=== PATIENT | male | born 1990 | race Caucasian/White ===

== ENCOUNTER 2020-09-26 15:42 | Emergency (ER) | payer MEDICAID ==
[~2020-09-26] VITALS: Ht 175.3 cm; Wt 90.0 kg
[2020-09-26 18:07] LABS: BASOPHILS % (AUTO) 0.4 % (0.0-2.0); HEMOGLOBIN 14.3 g/dL (13.5-17.5); LYMPHOCYTES % (AUTO) 36.2 % (22.0-44.0); MEAN CORPUSCULAR HEMOGLOBIN 30.8 pg (26.0-34.0); MEAN CORPUSCULAR VOLUME 91 fL (80-100); MONOCYTES # (AUTO) 0.4 K/uL (0.1-1.0); MONOCYTES % (AUTO) 6.5 % (2.0-9.0); NEUTROPHILS # (AUTO) 3.1 K/uL (1.8-7.7); NEUTROPHILS % (AUTO) 55.9 % (40.0-70.0); PLATELET COUNT (AUTO) 159 K/uL (150-450); RED BLOOD CELL COUNT(AUTO) 4.63 MIL/uL (4.50-5.90); RED CELL DISTRIBUTION WIDTH 12.9 % (11.5-14.5)
[2020-09-26 18:29] LABS: AMPHET/METH SCREEN,URINE NEGATIVE (NEGATIVE); BARBITURATE SCREEN, URINE NEGATIVE (NEGATIVE); BENZODIAZEPINES SCREEN,URINE NEGATIVE (NEGATIVE); CANNABINOID SCREEN,URINE NEGATIVE (NEGATIVE); COCAINE SCREEN,URINE NEGATIVE (NEGATIVE); METHADONE SCREEN, URINE NEGATIVE (NEGATIVE); OPIATE SCREEN,URINE NEGATIVE (NEGATIVE)
[2020-09-26 18:33] LABS: PHENCYCLIDINE SCREEN,URINE NEGATIVE (NEGATIVE)
[2020-09-26 19:30] VITALS: BP 130/74
[2020-09-26 19:30] LABS: ANION GAP 9 mmol/L (8-16); CALCIUM, TOTAL 9.2 mg/dL (8.8-10.5); CARBON DIOXIDE 29 mmol/L (22-29); CHLORIDE 105 mmol/L (98-107); CREATININE 1.16 mg/dL (0.60-1.30); GLOMERULAR FILTR. RATE CALC > 60 mL/min (>60); GLUCOSE,RANDOM 97 mg/dL (70-110); POTASSIUM 4.4 mmol/L (3.5-5.1); SODIUM SERUM 143 mmol/L (136-145); UREA NITROGEN, BLOOD 16 mg/dL (7-18)
[2020-09-26 19:36] LABS: ALANINE AMINOTRANSFERASE 30 U/L (12-78); ALBUMIN 4.2 g/dL (3.4-5.0); ALKALINE PHOSPHATASE 61 U/L (46-116); ASPARTATE AMINOTRANSFERASE 19 U/L (15-37); BILIRUBIN,TOTAL 0.3 mg/dL (0.1-1.0); TOTAL PROTEIN, SERUM 7.3 g/dL (6.4-8.2)
[2020-09-26 20:19] LABS: COVID AG,FIA SOURCE NASOPHARYNGEAL
== END 2020-09-26 19:40 | disposition home or self-care (01) ==
LOC: EMS 15:44
DX: R45.851 Suicidal ideations (principal); Z20.822 Contact with and (suspected) exposure to COVID-19
CPT/HCPCS: 36415; 80053; 80307; 85025; 87426; 99285; C9803; G0480

== ENCOUNTER 2020-11-14 18:28 | Inpatient (IN) | payer MEDICAID ==
[~2020-11-14] VITALS: Ht 172.7 cm; Wt 80.7 kg
[2020-11-14] MEDS ORDERED: LURA40TA2 PO (19:04)
[2020-11-14] MEDS ORDERED: GuaiFENesin/D-METHORPHAN [SUGAR-FREE] 200-20MG/10 ML SYRUP UDCUP PO PRN (20:45)
[2020-11-14] MEDS ORDERED: LORazepam 2 MG TABLET PO PRN (20:45)
[2020-11-14] MEDS ORDERED: ACETAMINOPHEN 325 MG TABLET PO PRN (20:45)
[2020-11-14] MEDS ORDERED: TUBERCULIN, PURIFIED PROTEIN DERIVATIVE 5 TU/0.1 ML SYRINGE ID ONE (20:45)
[2020-11-14] MEDS ORDERED: LURASIDONE HCL 20 MG TABLET PO PRN (20:45)
[2020-11-14] MEDS ORDERED: LOPERAMIDE HCL 2 MG CAPSULE PO PRN (20:45)
[2020-11-14] MEDS ORDERED: PROMETHAZINE HCL 25 MG TABLET PO PRN (20:45)
[2020-11-14] MEDS ORDERED: MAGNESIUM HYDROXIDE SUSPENSION 30 ML UDCUP PO PRN (20:45)
[2020-11-14] MEDS ORDERED: ZOLPIDEM TARTRATE 10 MG TABLET PO PRN (20:45)
[2020-11-14] MEDS ORDERED: HydrOXYzine PAMOATE 50 MG CAPSULE PO PRN (20:45)
[2020-11-14] MEDS ORDERED: MAG HYDROX/AL HYDROX/SIMETH ES 30 ML SUSPENSION UDCUP PO PRN (20:45)
[2020-11-15] MEDS: MELATONIN 5 MG TABLET PO SCH ×2 (00:30→20:56)
[2020-11-15 01:00] VITALS: BP 112/72
[2020-11-15] MEDS: LURASIDONE HCL 40 MG TABLET PO SCH (06:59)
[2020-11-15 08:16] VITALS: BP 110/60
[2020-11-15] MEDS: NALTREXONE HCL 50 MG TABLET PO SCH (08:31)
[2020-11-15] MEDS: MULTIVITAMINS WITH MINERALS, THERAPEUTIC TABLET PO SCH (08:32)
[2020-11-15] MEDS: OMEGA-3/DHA/EPA/FISH OIL 1,000 MG CAPSULE PO SCH (08:32)
[2020-11-15] MEDS: THIAMINE 100 MG TABLET PO SCH ×2 (08:32→16:21)
[2020-11-15] MEDS: FOLIC ACID 1 MG TABLET PO SCH (08:32)
[2020-11-15 16:10] VITALS: BP 124/69
[2020-11-16 01:35] VITALS: BP 116/70
[2020-11-16] MEDS: LURASIDONE HCL 40 MG TABLET PO SCH (06:47)
[2020-11-16 08:07] LABS: APPEARANCE,URINE TURBID (CLEAR); BILIRUBIN,URINE NEGATIVE (NEGATIVE); GLUCOSE, URINE (UA) NEGATIVE (NEGATIVE); KETONES,URINE NEGATIVE (NEGATIVE); LEUKOCYTE ESTERASE ,URINE NEGATIVE (NEGATIVE); NITRATE,URINE NEGATIVE (NEGATIVE); OCCULT BLOOD,URINE NEGATIVE (NEGATIVE); PH,URINE 6.5 (5.0-8.0); PROTEIN,URINE NEGATIVE (NEGATIVE); UROBILINOGEN,URINE 0.2 mg/dL (<=1.0)
[2020-11-16 08:20] LABS: BACTERIA,URINE None Seen /HPF (None Seen); RBC,URINE None Seen /HPF (0-2); SQUAMOUS EPITHELIAL CELL,UR Few /LPF (None Seen); WBC,URINE None Seen /HPF (0-5)
[2020-11-16 08:21] LABS: AMORPHOUS SEDIMENT,UR Many /LPF (None Seen); AMPHET/METH SCREEN,URINE NEGATIVE (NEGATIVE); BARBITURATE SCREEN, URINE NEGATIVE (NEGATIVE); BENZODIAZEPINES SCREEN,URINE NEGATIVE (NEGATIVE); CALCIUM OXALATE CRYSTALS,UR Few /LPF (None Seen); CANNABINOID SCREEN,URINE NEGATIVE (NEGATIVE); COCAINE SCREEN,URINE NEGATIVE (NEGATIVE); METHADONE SCREEN, URINE NEGATIVE (NEGATIVE); OPIATE SCREEN,URINE NEGATIVE (NEGATIVE); PHENCYCLIDINE SCREEN,URINE NEGATIVE (NEGATIVE)
[2020-11-16 08:44] VITALS: BP 123/61
[2020-11-16] MEDS: NALTREXONE HCL 50 MG TABLET PO SCH (08:53)
[2020-11-16] MEDS: FOLIC ACID 1 MG TABLET PO SCH (08:53)
[2020-11-16] MEDS: BuPROPion HCL XL 150 MG ER TABLET PO SCH (08:53)
[2020-11-16] MEDS: OMEGA-3/DHA/EPA/FISH OIL 1,000 MG CAPSULE PO SCH (08:53)
[2020-11-16] MEDS: THIAMINE 100 MG TABLET PO SCH ×2 (08:53→16:14)
[2020-11-16] MEDS: MULTIVITAMINS WITH MINERALS, THERAPEUTIC TABLET PO SCH (08:53)
[2020-11-16] MEDS ORDERED: NALT50TA PO (14:37)
[2020-11-16] MEDS ORDERED: LURA40TA2 PO (14:37)
[2020-11-16] MEDS ORDERED: OMEG-135 PO (14:37)
[2020-11-16] MEDS ORDERED: MELA5TAB3 PO (14:37)
[2020-11-16] MEDS ORDERED: BUPR-49 PO (14:37)
[2020-11-16 16:32] VITALS: BP 119/71
[2020-11-16] MEDS: MELATONIN 5 MG TABLET PO SCH (20:18)
[2020-11-17] MEDS: LURASIDONE HCL 40 MG TABLET PO SCH (06:50)
[2020-11-17 08:26] VITALS: BP 119/60
[2020-11-17] MEDS: THIAMINE 100 MG TABLET PO SCH (09:09)
[2020-11-17] MEDS: NALTREXONE HCL 50 MG TABLET PO SCH (09:09)
[2020-11-17] MEDS: OMEGA-3/DHA/EPA/FISH OIL 1,000 MG CAPSULE PO SCH (09:09)
[2020-11-17] MEDS: FOLIC ACID 1 MG TABLET PO SCH (09:10)
[2020-11-17] MEDS: BuPROPion HCL XL 150 MG ER TABLET PO SCH (09:10)
[2020-11-17] MEDS: MULTIVITAMINS WITH MINERALS, THERAPEUTIC TABLET PO SCH (09:10)
== END 2020-11-17 10:15 | disposition home or self-care (01) | DRG 750 ==
LOC: B3A 23:48
PROVIDERS: ADMIT Psychiatry & Neurology Psychiatry; ATTEND Psychiatry & Neurology Psychiatry
DX: F25.9 Schizoaffective disorder, unspecified (principal); Z91.19 Patient's noncompliance with other medical treatment and regimen; F17.210 Nicotine dependence, cigarettes, uncomplicated; Z91.5 Personal history of self-harm
CPT/HCPCS: 80307; 81001; A9575

== ENCOUNTER 2024-05-20 02:46 | Inpatient (IN) | payer MEDICAID, OTHER ==
[~2024-05-20] VITALS: Ht 172.7 cm; Wt 71.0 kg
[~2024-05-20 02:46] MED LIST: BUPR-49 PO; LURA40TA2 PO; MELA5TAB40 PO; NALT50TA6 PO; OMEG-135 PO
[2024-05-20 03:12] LABS: BASOPHILS % (AUTO) 0.5 % (0.0-2.0); EOSINOPHILS % (AUTO) 0.1 % (1.0-6.0); HEMOGLOBIN 14.6 g/dL (13.5-17.5); LYMPHOCYTES # (AUTO) 1.2 K/uL (1.0-4.8); LYMPHOCYTES % (AUTO) 10.3 % (22.0-44.0); MEAN CORPUSCULAR HEMOGLOBIN 30.9 pg (26.0-34.0); MEAN CORPUSCULAR VOLUME 91 fL (80-100); MONOCYTES # (AUTO) 0.6 K/uL (0.1-1.0); MONOCYTES % (AUTO) 4.9 % (2.0-9.0); NEUTROPHILS # (AUTO) 9.7 K/uL (1.8-7.7); NEUTROPHILS % (AUTO) 84.2 % (40.0-70.0); PLATELET COUNT (AUTO) 218 K/uL (150-450); RED BLOOD CELL COUNT(AUTO) 4.73 MIL/uL (4.50-5.90); RED CELL DISTRIBUTION WIDTH 13.2 % (11.5-14.5); WHITE BLOOD COUNT (AUTO) 11.5 K/uL (4.5-11.0)
[2024-05-20 03:21] LABS: ANION GAP 6 mmol/L (8-16); CALCIUM, TOTAL 8.2 mg/dL (8.8-10.5); CARBON DIOXIDE 28 mmol/L (22-29); CHLORIDE 104 mmol/L (98-107); CREATININE 1.23 mg/dL (0.60-1.30); GLOMERULAR FILTR. RATE CALC > 60 mL/min (>60); GLUCOSE,RANDOM 128 mg/dL (70-110); SODIUM SERUM 138 mmol/L (136-145); UREA NITROGEN, BLOOD 22 mg/dL (7-18)
[2024-05-20 03:37] LABS: ALCOHOL, BLOOD (SERUM) < 3 mg/dL (0-10)
[2024-05-20 04:03] LABS: COVID AG,FIA SOURCE NASAL SWAB
[2024-05-20 04:10] LABS: SARS-COV2 (COVID) ANTIGEN,FIA Negative (Negative)
[2024-05-20 04:17] LABS: AMPHET/METH SCREEN,URINE NEGATIVE (NEGATIVE); BARBITURATE SCREEN, URINE NEGATIVE (NEGATIVE); BENZODIAZEPINES SCREEN,URINE NEGATIVE (NEGATIVE); CANNABINOID SCREEN,URINE POSITIVE (NEGATIVE); COCAINE SCREEN,URINE NEGATIVE (NEGATIVE); METHADONE SCREEN, URINE NEGATIVE (NEGATIVE); OPIATE SCREEN,URINE NEGATIVE (NEGATIVE); PHENCYCLIDINE SCREEN,URINE NEGATIVE (NEGATIVE)
[2024-05-20 04:19] LABS: ALCOHOL, URINE DRUG SCREEN NEGATIVE (NEGATIVE)
[2024-05-20] MEDS ORDERED: ZOLPIDEM TARTRATE 10 MG TABLET PO PRN (20:45)
[2024-05-20] MEDS ORDERED: LORazepam 2 MG TABLET PO PRN (20:45)
[2024-05-20] MEDS ORDERED: HALOPERIDOL 5 MG TABLET PO PRN (20:45)
[2024-05-20 22:30] VITALS: O2SAT 97
[2024-05-20 23:48] VITALS: BP 127/85; PULSE 61; RESP 18; TEMP 98.5; O2SAT 99
[2024-05-21] MEDS ORDERED: CloNIDine HCL 0.1 MG TABLET PO PRN (01:15)
[2024-05-21] MEDS ORDERED: MAGNESIUM HYDROXIDE SUSPENSION 30 ML UDCUP PO PRN (01:15)
[2024-05-21] MEDS ORDERED: BENZOCAINE/MENTHOL LOZENGE PO PRN (01:15)
[2024-05-21] MEDS ORDERED: MAG HYDROX/ALUMINUM HYD/SIMETH ES 30 ML SUSPENSION UDCUP PO PRN (01:15)
[2024-05-21] MEDS ORDERED: OMEPRAZOLE 20 MG CAPSULE PO PRN (01:15)
[2024-05-21] MEDS ORDERED: IBUPROFEN 600 MG TABLET PO PRN (01:15)
[2024-05-21] MEDS ORDERED: DOCUSATE SODIUM 100 MG CAPSULE PO PRN (01:15)
[2024-05-21] MEDS ORDERED: PETROLATUM,WHITE 28 GM JELLY TP PRN (01:15)
[2024-05-21] MEDS ORDERED: LOPERAMIDE HCL 2 MG CAPSULE PO PRN (01:15)
[2024-05-21] MEDS ORDERED: BACITRACIN 28 GM OINTMENT TP PRN (01:15)
[2024-05-21] MEDS ORDERED: ALBUTEROL SULFATE HFA 90 MCG/PUFF 8 GM INHALER IH PRN (01:15)
[2024-05-21] MEDS: ONDANSETRON 4 MG TABLET PO PRN (08:36)
[2024-05-21] MEDS: OMEGA-3/DHA/EPA/FISH OIL 1,000 MG CAPSULE PO SCH (08:36)
[2024-05-21 08:48] VITALS: BP 108/65; PULSE 59; RESP 19; TEMP 98; O2SAT 99
[2024-05-21] MEDS: BuPROPion HCL XL 150 MG ER TABLET PO SCH (12:35)
[2024-05-21 12:36] VITALS: BP 110/69; PULSE 65; RESP 20; O2SAT 97
[2024-05-21] MEDS: ACETAMINOPHEN 325 MG TABLET PO PRN (12:36)
[2024-05-21] MEDS: RisperiDONE 3 MG TABLET PO SCH (16:42)
[2024-05-21] MEDS: LURASIDONE HCL 80 MG TABLET PO SCH (17:32)
[2024-05-21] MEDS: MELATONIN 5 MG TABLET PO SCH (20:14)
[2024-05-21 22:18] VITALS: BP 100/69; PULSE 65; RESP 16; TEMP 98.6; O2SAT 99
[2024-05-22 10:10] VITALS: BP 127/70; PULSE 63; RESP 17; TEMP 98.4; O2SAT 100
== END 2024-05-22 14:00 | disposition home or self-care (01) | DRG 750 ==
LOC: EMS 02:46 → 3EI 22:53
PROVIDERS: ADMIT Psychiatry & Neurology Psychiatry; ATTEND Psychiatry & Neurology Psychiatry
DX: F25.9 Schizoaffective disorder, unspecified (principal); R45.851 Suicidal ideations; K21.9 Gastro-esophageal reflux disease without esophagitis; F12.10 Cannabis abuse, uncomplicated; Z20.822 Contact with and (suspected) exposure to COVID-19; F17.200 Nicotine dependence, unspecified, uncomplicated; K59.00 Constipation, unspecified
CPT/HCPCS: 80048; 80307; 85025; 99285; G0480; Q0162

== ENCOUNTER 2024-08-22 19:31 | Emergency (ER) | payer MEDICAID ==
[~2024-08-22] VITALS: Ht 172.7 cm; Wt 75.0 kg
[2024-08-22 20:05] LABS: BASOPHILS % (AUTO) 0.4 % (0.0-2.0); EOSINOPHILS % (AUTO) 0.9 % (1.0-6.0); HEMATOCRIT 41.1 % (41-53); HEMOGLOBIN 13.8 g/dL (13.5-17.5); LYMPHOCYTES # (AUTO) 2.7 K/uL (1.0-4.8); LYMPHOCYTES % (AUTO) 45.3 % (22.0-44.0); MEAN CORPUSCULAR HEMOGLOBIN 30.5 pg (26.0-34.0); MEAN CORPUSCULAR HGB CONC 33.7 G/dL (31.0-37.0); MEAN CORPUSCULAR VOLUME 90 fL (80-100); MONOCYTES # (AUTO) 0.5 K/uL (0.1-1.0); MONOCYTES % (AUTO) 7.8 % (2.0-9.0); NEUTROPHILS # (AUTO) 2.7 K/uL (1.8-7.7); NEUTROPHILS % (AUTO) 45.6 % (40.0-70.0); PLATELET COUNT (AUTO) 182 K/uL (150-450); RED BLOOD CELL COUNT(AUTO) 4.55 MIL/uL (4.50-5.90); RED CELL DISTRIBUTION WIDTH 12.7 % (11.5-14.5); WHITE BLOOD COUNT (AUTO) 5.9 K/uL (4.5-11.0)
[2024-08-22 20:12] VITALS: BP 121/74; PULSE 66; RESP 18; TEMP 97.7; O2SAT 97
[2024-08-22 20:15] LABS: ANION GAP 9 mmol/L (8-16); CALCIUM, TOTAL 8.5 mg/dL (8.8-10.5); CARBON DIOXIDE 28 mmol/L (22-29); CHLORIDE 103 mmol/L (98-107); CREATININE 1.09 mg/dL (0.60-1.30); GLOMERULAR FILTR. RATE CALC > 60 mL/min (>60); GLUCOSE,RANDOM 91 mg/dL (70-110); POTASSIUM 3.7 mmol/L (3.5-5.1); SODIUM SERUM 139 mmol/L (136-145); UREA NITROGEN, BLOOD 17 mg/dL (7-18)
[2024-08-22] MEDS: BACITRACIN 0.9 GM PACKET OINTMENT TP ONE (20:16)
[2024-08-22 20:18] LABS: ALCOHOL, BLOOD (SERUM) < 3 mg/dL (0-10)
[2024-08-22] MEDS: HALOPERIDOL 5 MG TABLET PO ONE (20:44)
== END 2024-08-22 22:22 | disposition home or self-care (01) ==
LOC: EMS 19:31
DX: S60.311A Abrasion of right thumb, initial encounter (principal); F25.9 Schizoaffective disorder, unspecified; R44.0 Auditory hallucinations; X58.XXXA Exposure to other specified factors, initial encounter; Y93.89 Activity, other specified; Y92.89 Other specified places as the place of occurrence of the external cause; Y99.8 Other external cause status
CPT/HCPCS: 99284; 80048; 85025; G0480